=== PATIENT | male | born 1990 | race Asian ===

== ENCOUNTER 2021-05-31 10:48 | Emergency (ER) | payer BC ==
[~2021-05-31] VITALS: Ht 180.3 cm; Wt 77.0 kg
[2021-05-31] MEDS ORDERED: IBUPROFEN 600MG TABLET PO ONE (12:00)
[2021-05-31] MEDS ORDERED: BACITRACIN ZINC OINT UDPKT TOP ONE (12:00)
[2021-05-31] MEDS ORDERED: IBUP-2029 PO (12:46)
[2021-05-31 13:05] VITALS: BP 121/90
== END 2021-05-31 13:06 | disposition home or self-care (01) ==
LOC: ER 10:48
DX: S01.01XA Laceration without foreign body of scalp, initial encounter (principal); Z88.2 Allergy status to sulfonamides; Z88.1 Allergy status to other antibiotic agents; V00.131A Fall from skateboard, initial encounter; Y93.51 Activity, roller skating (inline) and skateboarding; Y92.830 Public park as the place of occurrence of the external cause; Y99.8 Other external cause status
CPT/HCPCS: 99283